=== PATIENT | male | born 1945 | race Caucasian/White ===

== ENCOUNTER 2020-08-31 20:51 | Emergency (ER) | payer OTHER ==
[~2020-08-31] VITALS: Ht 177.8 cm; Wt 80.7 kg
[2020-08-31 21:29] LABS: BASOPHILS # (AUTO) 0.1 /CMM (0.0-0.2); BASOPHILS % (AUTO) 0.5 % (0.0-2.0); EOSINOPHILS % (AUTO) 0.2 % (0.0-6.0); HEMATOCRIT 47 % (39-51); HEMOGLOBIN 15.5 g/dL (13.5-17.5); LYMPHOCYTES # (AUTO) 1.4 /CMM (0.8-4.8); LYMPHOCYTES % (AUTO) 8.8 % (20.0-44.0); MEAN CORPUSCULAR HGB CONC 33 g/dl (31.0-36.0); MEAN CORPUSCULAR VOLUME 91 fL (80-96); MONOCYTES # (AUTO) 2.5 /CMM (0.1-1.30); MONOCYTES % (AUTO) 15.5 % (2.0-12.0); PLATELET COUNT (AUTO) 182 /CMM (150-450)
[2020-08-31] MEDS: IV NS 0.9% 500 ML BAG IV ONE (21:31)
--- NOTE | 2020-08-31 21:36 | NUR ---
BIBPA FROM [facility] FOR ALOC SINCE 5PM, LAST BS 186 AT 5:30P, HEMATURIA AND TACHYCARDIA. PER PA NOTED PT 02 SAT 84% RA PLACED ON 2L IMPROVED TO 97%. PT AAOX3, VSS. SLOW TO RESPOND. DENIES CP, SOB, DIZZINESS, N/V AT THIS TIME. NO FACIAL DROOP, TONGUE MIDLINE, NO ARM/LEG DRIFTING. PLACED ON ACTION INSTALLER, SR. PT SEEN & EVAL'D BY CECI PRITCHARD. WILL CONT TO MONITOR.
[2020-08-31 21:42] LABS: CALCIUM, SERUM 9.3 mg/dL (8.5-10.1); CARBON DIOXIDE 27 mmol/L (21-32); CHLORIDE 101 mmol/L (98-107); CREATININE 1.1 mg/dL (0.6-1.3); GLUCOSE 179 mg/dL (74-106); POTASSIUM 4.4 mmol/L (3.5-5.1); SODIUM SERUM 139 mmol/L (136-145); UREA NITROGEN, BLOOD 23 mg/dL (7-18)
[2020-08-31 21:48] LABS: ALANINE AMINOTRANSFERASE 14 U/L (12-78); ALBUMIN 2.9 g/dL (3.4-5.0); ALKALINE PHOSPHATASE 54 U/L (46-116); ASPARTATE AMINOTRANSFERASE 9 U/L (15-37); BILIRUBIN,DIRECT 0.1 mg/dL (0.0-0.2); BILIRUBIN,TOTAL 0.5 mg/dL (0.2-1.0); TOTAL PROTEIN, SERUM 7.4 g/dL (6.4-8.2)
[2020-08-31 22:36] LABS: APPEARANCE,URINE Clear (CLEAR); BILIRUBIN,URINE MODERATE (NEGATIVE); BLOOD, URINE Large Ery/uL (NEGATIVE); COLOR,URINE Red (YELLOW); KETONES,URINE 80 (NEGATIVE); LEUKOCYTE ESTERASE ,URINE Large (NEGATIVE); NITRITE, URINE Negative (NEGATIVE); PH,URINE 5.5 (5.0-8.0); PROTEIN,URINE 100 mg/dl (NEGATIVE); UGLUCOSE 500 MG/DL mg/dL (NEGATIVE)
[2020-08-31 22:48] LABS: RBC,URINE TOO NUMEROUS TO COUN /HPF (0-2)
[2020-08-31 22:49] LABS: WBC,URINE 21-50 /HPF (0-3)
[2020-08-31 22:50] LABS: BACTERIA,URINE 2+ /HPF (None Seen); SQUAMOUS EPITHELIAL CELL,UR Few /HPF (None Seen)
[2020-08-31] MEDS ORDERED: MAG HYDROX/AL HYDROX/SIMETH 30 ML UDC PO PRN (23:00)
[2020-08-31] MEDS ORDERED: Z GUARD REMEDY 2 OZ OINT TP PRN (23:00)
[2020-08-31] MEDS ORDERED: MAGNESIUM HYDROXIDE 30 ML UDC PO PRN (23:00)
[2020-08-31] MEDS ORDERED: ONDANSETRON HCL/PF 4 MG/2 ML VIAL IVP PRN (23:00)
[2020-08-31] MEDS ORDERED: ENOXAPARIN SODIUM 30 MG/0.3 ML DISP.SYRIN SQ SCH (23:00)
[2020-08-31] MEDS ORDERED: HYDROCODONE/APAP 5/325MG TABLET PO PRN (23:00)
[2020-08-31] MEDS ORDERED: CEFTRIAXONE 1 G in IV D5W 50 ML IV SCH (23:00)
[2020-08-31] MEDS ORDERED: IV NS 0.9% 1,000 ML IV PRN (23:00)
[2020-08-31] MEDS ORDERED: ACETAMINOPHEN 325 MG TABLET PO PRN (23:00)
[2020-08-31] MEDS ORDERED: CEFTRIAXONE 1GM BAG (ER ONLY) 50 ML IV ONE (23:29)
--- NOTE | 2020-08-31 23:30 | NUR ---
CALLED [facility]. WAITING FOR MD CALL BACK.
[2020-08-31] MEDS: CEFTRIAXONE 1GM BAG (ER ONLY) 1 GM/50 ML PIGGYBACK IV ONE (23:35)
--- NOTE | 2020-08-31 23:37 | NUR ---
PT AAOX3, VSS. RR EVEN & UNLABORED. DENIES CP, SOB, DIZZINESS, N/V AT THIS TIME. WILL CONT TO MONITOR.
--- NOTE | 2020-09-01 00:04 | NUR ---
SPOKE TO AL FROM [facility] IN REGARDING TO TRANSPORTATION TO [facility], PER AL WILL CALL BACK WITH TRANSFER INFO.
[2020-09-01 00:10] LABS: BAND % (MANUAL) 2 % (0.0-5.0); LYMPHOCYTES % (MANUAL) 7 % (16-48); MONOCYTES % (MANUAL) 16 % (0-11.0); NEUTROPHILS % (MANUAL) 75 (42-76)
--- NOTE | 2020-09-01 00:15 | NUR ---
SOKE TO [facility] REGARDING DISCHARGE TRANSPORT ETA [facility]
--- NOTE | 2020-09-01 01:18 | NUR ---
TRANSPORT AT BEDSIDE REPORT GIVEN TO EMT.
--- NOTE | 2020-09-01 01:20 | NUR ---
REPORT CALLED TO [facility] STA[facility] ZULMA.
[2020-09-01 01:24] VITALS: BP 132/65
--- NOTE | 2020-09-01 01:32 | NUR ---
REPORT GIVEN TO [facility].
== END 2020-09-01 01:34 ==
LOC: ER 20:57
DX: N39.0 Urinary tract infection, site not specified (principal); R31.0 Gross hematuria; R41.82 Altered mental status, unspecified; I10 Essential (primary) hypertension; Z95.1 Presence of aortocoronary bypass graft; E11.9 Type 2 diabetes mellitus without complications; R42 Dizziness and giddiness; R09.02 Hypoxemia; Z20.828 Contact with and (suspected) exposure to other viral communicable diseases
CPT/HCPCS: 36415; 70450; 71045; 80048; 80076; 81001; 83605; 84484; 85007; 85025; 85730; 87040 ×2; 87077; 87086; 87186; 93005; 96365; 99285; C9803; J0696 ×2; J7040; J7060; U0003; 81000-TC

== ENCOUNTER 2020-11-03 11:59 | Emergency (ER) | payer OTHER ==
[~2020-11-03] VITALS: Ht 175.3 cm; Wt 72.6 kg
--- NOTE | 2020-11-03 12:05 | NUR ---
REJ[place] [facility] [place] FOR LOW BLOOD SUGAR 63 AT [facility]. GIVEN OJ BG 93 IN FIELD PER EMS. TO ER BED 16, HOOKED TO MONITOR, CHANGED TO HOSP GOWN, WARM BLABKET PROVIDED. PATIENT AAO x 1. BREATHING EVEN AND UNLABORED. DR GUAN AT BEDSIDE
--- NOTE | 2020-11-03 13:32 | NUR ---
ASSISTED PATIENT TO DRINK ORANGE JUICE. TOLERATED WELL.
--- NOTE | 2020-11-03 14:02 | NUR ---
KARMA HAYES FOR TRANSPORT TO [facility].
--- NOTE | 2020-11-03 15:48 | NUR ---
bs 67mg/dl. made aware.
--- NOTE | 2020-11-03 16:00 | NUR ---
provided w pudding and orange juice. will recheck BS after 15-20min
--- NOTE | 2020-11-03 16:16 | NUR ---
BS 140, MADE AWARE. PATIENT GOOD TO GO BACK TO SNF
[2020-11-03 16:20] VITALS: BP 154/69
== END 2020-11-03 16:21 ==
LOC: ER 12:43
DX: E11.649 Type 2 diabetes mellitus with hypoglycemia without coma (principal); I10 Essential (primary) hypertension; Z98.890 Other specified postprocedural states
CPT/HCPCS: 82962-TC

== ENCOUNTER 2020-11-06 18:21 | Emergency (ER) | payer MEDICARE, OTHER ==
[~2020-11-06] VITALS: Ht 165.1 cm; Wt 68.5 kg
--- NOTE | 2020-11-06 18:40 | NUR ---
BIB [facility] C/O , FEVER, SOB, AND HYPOXIA 87% ON RA. PLACED ON 5L NC O2 WENT UP TO 93-94%. VS CHECKED. LILIBETH ON MONITOR. IV ACCESS STARTED BLOOD DRAW DONE. URINE COLLECTED. SENT TO LAB. SEEN BY DR. ROCHA
--- NOTE | 2020-11-06 18:45 | NUR ---
covid swab done sent to lab
[2020-11-06 18:51] LABS: BASOPHILS # (AUTO) 0.1 /CMM (0.0-0.2); BASOPHILS % (AUTO) 0.4 % (0.0-2.0); HEMATOCRIT 48 % (39-51); HEMOGLOBIN 15.4 g/dL (13.5-17.5); LYMPHOCYTES % (AUTO) 11.4 % (20.0-44.0); MEAN CORPUSCULAR HGB CONC 32 g/dl (31.0-36.0); MEAN CORPUSCULAR VOLUME 93 fL (80-96); MONOCYTES # (AUTO) 1.4 /CMM (0.1-1.30); NEUTROPHILS # (AUTO) 14.1 /CMM (1.8-8.9); NEUTROPHILS % (AUTO) 80.2 % (43.0-81.0); PLATELET COUNT (AUTO) 237 /CMM (150-450); RED BLOOD CELL COUNT(AUTO) 5.18 MIL/uL (4.5-6.0); WHITE BLOOD COUNT (AUTO) 17.6 K/uL (4.3-11.0)
[2020-11-06] MEDS ORDERED: ACETAMINOPHEN 650 MG/SUPP.RECT RC ONE ×2 (18:53→19:00)
[2020-11-06] MEDS ORDERED: IV NS 0.9% 500 ML IV ONE (19:00)
[2020-11-06 19:08] LABS: BILIRUBIN,URINE SMALL (NEGATIVE); BLOOD, URINE Large Ery/uL (NEGATIVE); COLOR,URINE YELLOW (YELLOW); LEUKOCYTE ESTERASE ,URINE Small (NEGATIVE); NITRITE, URINE Negative (NEGATIVE); PH,URINE 5.5 (5.0-8.0); PROTEIN,URINE 30 mg/dl (NEGATIVE); UGLUCOSE 500 MG/DL mg/dL (NEGATIVE); UROBILINOGEN,URINE 0.2 EU/dL (0.2)
--- NOTE | 2020-11-06 19:13 | NUR ---
LAB CALLED LACTIC ACID IS 2.8
[2020-11-06 19:14] LABS: BACTERIA,URINE 2+ /HPF (None Seen); RBC,URINE 51-80 /HPF (0-2); SQUAMOUS EPITHELIAL CELL,UR Few /HPF (None Seen)
[2020-11-06 19:16] LABS: ALANINE AMINOTRANSFERASE 16 U/L (12-78); ALBUMIN 2.9 g/dL (3.4-5.0); ALKALINE PHOSPHATASE 61 U/L (46-116); ASPARTATE AMINOTRANSFERASE 12 U/L (15-37); B-TYPE NATRIURETIC PEPTIDE 399 PG/ML (0-125); BILIRUBIN,TOTAL 0.3 mg/dL (0.2-1.0); CALCIUM, SERUM 10.2 mg/dL (8.5-10.1); CARBON DIOXIDE 28 mmol/L (21-32); CHLORIDE 109 mmol/L (98-107); CREATININE 2.3 mg/dL (0.6-1.3); GLUCOSE 356 mg/dL (74-106); POTASSIUM 4.6 mmol/L (3.5-5.1); SODIUM SERUM 152 mmol/L (136-145); TOTAL PROTEIN, SERUM 8.3 g/dL (6.4-8.2); UREA NITROGEN, BLOOD 72 mg/dL (7-18)
--- NOTE | 2020-11-06 19:16 | NUR ---
LAB CALLED GLUCOSE 356 KRISTAN INFORMED
[2020-11-06] MEDS ORDERED: FERR325T23 PO (19:30)
[2020-11-06] MEDS ORDERED: METF-440 PO (19:30)
[2020-11-06] MEDS ORDERED: QUERCETIN PO (19:30)
[2020-11-06] MEDS ORDERED: ACET-868 PO (19:30)
[2020-11-06] MEDS ORDERED: ACET-2605 PO (19:30)
[2020-11-06] MEDS ORDERED: ASCO-352 PO (19:30)
[2020-11-06] MEDS ORDERED: GABA600T12 PO (19:30)
[2020-11-06] MEDS ORDERED: CHOL100040 PO (19:30)
[2020-11-06] MEDS ORDERED: MAGN400O6 PO (19:30)
[2020-11-06] MEDS ORDERED: INSU100V3 SQ (19:30)
[2020-11-06] MEDS ORDERED: SELE180S13 TP (19:30)
[2020-11-06] MEDS ORDERED: DIVA500T4 PO (19:30)
[2020-11-06] MEDS ORDERED: ASPI-1169 PO (19:30)
[2020-11-06] MEDS ORDERED: MELA3TAB41 PO (19:30)
[2020-11-06] MEDS ORDERED: POLY15DR40 EACHEYE (19:30)
[2020-11-06] MEDS ORDERED: METO25TA20 PO (19:30)
[2020-11-06] MEDS ORDERED: SAXA5TAB PO (19:30)
[2020-11-06] MEDS ORDERED: INSU100V7 SQ (19:30)
[2020-11-06] MEDS ORDERED: FINA5TAB11 PO (19:30)
[2020-11-06] MEDS ORDERED: CITA20TA16 PO (19:30)
[2020-11-06] MEDS ORDERED: ROSU20TA2 PO (19:30)
[2020-11-06] MEDS ORDERED: TAMS-12 PO (19:30)
[2020-11-06] MEDS ORDERED: MULT-447 PO (19:30)
[2020-11-06] MEDS ORDERED: DIVA250T PO (19:30)
[2020-11-06] MEDS ORDERED: CEFTRIAXONE 1GM BAG (ER ONLY) 50 ML IV ONE ×2 (19:30→20:04)
[2020-11-06] MEDS ORDERED: BISA10SU11 RC (19:30)
[2020-11-06] MEDS ORDERED: EMPA10TA PO (19:30)
[2020-11-06] MEDS ORDERED: NA P133E RC (19:30)
--- NOTE | 2020-11-06 19:39 | NUR ---
PATIENT IS 88% 02 SATURATION ON 6L 02. PT PLACED ON 8L SIMPLE MASK TOLERATING AT 92% O2 SATURATION.
--- NOTE | 2020-11-06 19:50 | NUR ---
COVID SWAB COLLECTED AND SENT TO THE LAB.
[2020-11-06 20:03] LABS: CREATINE KINASE, TOTAL 77 U/L (39-308); FERRITIN 505 ng/mL (8-388)
[2020-11-06 20:08] LABS: D-DIMER 1.74 mg/L(FEU (0.17-0.50)
--- NOTE | 2020-11-06 20:23 | NUR ---
EDDIE EPRP PAGED PER DR ROCHA
--- NOTE | 2020-11-06 20:25 | NUR ---
ROBB ELISE TALKING TP EDDIE HAYES MD REGARDING PT.
--- NOTE | 2020-11-06 20:51 | NUR ---
LAB CALLED REGARDING POSITIVE COVID RESULT.
[2020-11-06 21:33] LABS: BILIRUBIN,DIRECT 0.1 mg/dL (0.0-0.2)
--- NOTE | 2020-11-06 22:03 | NUR ---
PT ACCEPTED TO [place] [id number] TAVERAS. # FOR REPORT [phone]. [facility] ETA 2244
[2020-11-06 22:15] VITALS: BP 136/72
--- NOTE | 2020-11-06 22:25 | NUR ---
report given to Ruth Whitfield for [facility]. Addendum: 11/06/20 at 2225 by YUNIOR from [facility].
--- NOTE | 2020-11-06 22:35 | NUR ---
report given to ambulance team for [facility]. and transferring responsibilities.
== END 2020-11-06 22:36 | disposition short-term general hospital (02) ==
LOC: ER 18:30
DX: A41.89 Other specified sepsis (principal); U07.1 COVID-19; N39.0 Urinary tract infection, site not specified; R00.0 Tachycardia, unspecified; Z91.030 Bee allergy status; I25.10 Atherosclerotic heart disease of native coronary artery without angina pectoris; Z95.1 Presence of aortocoronary bypass graft; G20 Parkinson's disease; I10 Essential (primary) hypertension; N40.0 Benign prostatic hyperplasia without lower urinary tract symptoms; E11.9 Type 2 diabetes mellitus without complications; Z79.4 Long term (current) use of insulin; M16.10 Unilateral primary osteoarthritis, unspecified hip
CPT/HCPCS: 36415; 71045; 80053; 81001; 82248; 82550; 82728; 83605 ×2; 83615; 83880; 84145; 84484; 85025; 85378; 85385; 85730; 86140; 87040 ×2; 87081; 87426; 93005; 96361; 96365; 99285; C9803; J0696; J7030; U0003